=== PATIENT | female | born 1935 | race Caucasian/White ===

== ENCOUNTER 2020-04-04 08:10 | Emergency (ER) | payer MEDICARE ==
--- NOTE | 2020-04-04 08:36 | EDM.PDOC ---
ED HPI GENERAL MEDICAL PROBLEM - General Chief Complaint: Upper Extremity Injury/Pain Stated Complaint: LT ARM INJURY Time Seen by Provider: 04/04/20 08:26 Source of Information: Reports: Patient History Limitations: Reports: No Limitations - History of Present Illness INITIAL COMMENTS - FREE TEXT/NARRATIVE: The patient presents with left shoulder pain. 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 She did not hit her head or hurt her neck. She is not on any blood thinners. She has no headache, neck pain, chest pain, or abdominal pain. She does have ecchymosis to her upper arm. She has pain in her shoulder with any movement. Onset: Sudden Duration: Day(s): (Yesterday) Location: Reports: Upper Extremity, Left (Shoulder) Quality: Reports: Sharp Improves with: Reports: Immobilization Worsens with: Reports: Movement Context: Reports: Trauma (Fell yesterday) Associated Symptoms: Reports: No Other Symptoms Left Upper Arm Pain Score (Numeric/FACES): 10 - Related Data Allergies Allergy/AdvReac Type Severity Reaction Status Date / Time amoxicillin Allergy Severe Rash Verified 04/04/20 08:34 ketoprofen Allergy Severe Cannot Verified 04/04/20 08:34 Remember sitagliptin [From Januvia] Allergy Severe Cannot Verified 04/04/20 08:34 Remember Home Meds: Home Meds Insulin Glarg,Human.Rec.Analog [Lantus] 40 unit SQ DAILY 04/04/20 [History] metFORMIN [Glucophage] 1,000 mg PO DAILY 04/04/20 [History] Review of Systems - Review of Systems Review Of Systems: See Below Constitutional: Reports: No Symptoms Eyes: Reports: No Symptoms Ears: Reports: No Symptoms Nose: Reports: No Symptoms Mouth/Throat: Reports: No Symptoms Respiratory: Reports: No Symptoms Cardiovascular: Reports: No Symptoms GI/Abdominal: Reports: No Symptoms Genitourinary: Reports: No Symptoms Musculoskeletal: Reports: Other (Left shoulder pain) ED EXAM, GENERAL - Physical Exam Exam: See Below Exam Limited By: No Limitations General Appearance: Alert, No Apparent Distress Ears: Normal External Exam Nose: Normal Inspection Head: Atraumatic, Normocephalic Neck: Normal Inspection Respiratory/Chest: No Respiratory Distress, Lungs Clear, Normal Breath Sounds Cardiovascular: Regular Rate, Rhythm, No Edema, No Murmur GI/Abdominal: Soft, Non-Tender, No Organomegaly, No Mass Back Exam: Normal Inspection Extremities: Other (Ecchymosis to the proximal left humerus. Pain upon palpation and edema. Good sensation and pulses distally.) Course - Vital Signs Last Recorded V/S: Last Vital Signs Temp 97.0 F 04/04/20 08:21 Pulse 110 H 04/04/20 08:21 Resp 18 04/04/20 08:21 BP 139/83 04/04/20 08:21 Pulse Ox 97 04/04/20 08:21 - Orders/Labs/Meds Orders: Active Orders 24 hr Category Date Time Status Shoulder Comp Lt [CR] Stat Exams 04/04/20 08:31 Taken Durable Medical Equipment for Discharge [DME for Oth 04/04/20 09:22 Ordered Discharge] [COMM] Stat - Re-Assessments/Exams Free Text/Narrative Re-Assessment/Exam: 04/04/20 08:36 I ordered an x-ray of her left shoulder. 04/04/20 09:24 I do not see any fracture or dislocation. There is some degenerative changes. She cannot move her shoulder. I will get her in a shoulder immobilizer and have her follow up with physical therapy and Dr Rivera. Departure - Departure Time of Disposition: 09:25 Disposition: Home, Self-Care 01 Condition: Good Clinical Impression: Fall Qualifiers: Encounter type: initial encounter Qualified Code(s): W19.XXXA - Unspecified fall, initial encounter Contusion of left shoulder Qualifiers: Encounter type: initial encounter Qualified Code(s): S40.012A - Contusion of left shoulder, initial encounter Shoulder injury Qualifiers: Encounter type: initial encounter Laterality: left Qualified Code(s): S49.92XA - Unspecified injury of left shoulder and upper arm, initial encounter - Discharge Information *PRESCRIPTION DRUG MONITORING PROGRAM REVIEWED*: Not Applicable *COPY OF PRESCRIPTION DRUG MONITORING REPORT IN PATIENT JOSE ALBERTO: Not Applicable Referrals: Mandie Pandya MD [Primary Care Provider] - Trip Rivera MD [Physician] - 1 Week Forms: ED Department Discharge Additional Instructions: Ice your shoulder for 15 minutes 3 times per day for 2 days. Take motrin or tyelnol for pain. Wear the shoulder immobilizer for comfort. Follow up with physical therapy and Dr Rivera. Please return if you are worse. Sepsis Event Note (ED) - Evaluation Sepsis Screening Result: No Definite Risk - Focused Exam Vital Signs: Vital Signs Temp Pulse Resp BP Pulse Ox 04/04/20 08:21 97.0 F 110 H 18 139/83 97 - My Orders Last 24 Hours: My Active Orders 04/04/20 08:31 Shoulder Comp Lt [CR] Stat 04/04/20 09:22 Durable Medical Equipment for Discharge [DME for Discharge] [COMM] Stat - Assessment/Plan Last 24 Hours: My Active Orders 04/04/20 08:31 Shoulder Comp Lt [CR] Stat 04/04/20 09:22 Durable Medical Equipment for Discharge [DME for Discharge] [COMM] Stat
--- NOTE | 2020-04-04 09:30 | CR ---
Left shoulder: 3 views of the left shoulder were obtained. Comparison: No prior shoulder study. Joint space narrowing and inferior spurring is noted within the acromioclavicular joint. Glenohumeral joint appears within normal limits. Osteopenia is seen. Scattered endplate spurring is seen within the visualized spine. No acute fracture or other bony abnormality is identified. Impression: 1. Osteopenia and degenerative change. 2. No acute bony abnormality is appreciated. Diagnostic code #2 This report was dictated in MDT
== END 2020-04-04 10:04 | disposition home or self-care (01) ==
LOC: JD.ED 08:10
DX: S40.012A Contusion of left shoulder, initial encounter (principal); Z88.1 Allergy status to other antibiotic agents; Z88.8 Allergy status to other drugs, medicaments and biological substances; W19.XXXA Unspecified fall, initial encounter; W22.8XXA Striking against or struck by other objects, initial encounter
CPT/HCPCS: 73030-26-LT; 73030-LT; 99282; 99283-25

== ENCOUNTER 2022-06-28 10:21 | Emergency (ER) | payer MEDICARE ==
[2022-06-28] MEDS ORDERED: Metoclopramide 10 MG/2 ML SDV ONE (11:35)
[2022-06-28] MEDS ORDERED: Metoclopramide 10 MG/2 ML SDV IVPUSH ONE (11:40)
[2022-06-28 13:26] LABS: ESTIMATED GFR 55 mL/min (>60)
== END 2022-06-28 13:42 | disposition home or self-care (01) ==
LOC: JD.ED 10:21
DX: R42 Dizziness and giddiness (principal); G47.00 Insomnia, unspecified; E11.9 Type 2 diabetes mellitus without complications; I10 Essential (primary) hypertension; Z90.710 Acquired absence of both cervix and uterus
CPT/HCPCS: 36415; 80053; 83735; 83880; 84443; 84484; 85025; 86140; 96374; 99283; J2765

== ENCOUNTER 2022-07-23 15:06 | Emergency (ER) | payer MEDICARE | END 2022-07-23 17:32 | disposition home or self-care (01) | LOC: JD.ED 15:06 | DX: F41.9 Anxiety disorder, unspecified (principal); I10 Essential (primary) hypertension; E11.9 Type 2 diabetes mellitus without complications; Z79.82 Long term (current) use of aspirin; Z79.899 Other long term (current) drug therapy; Z79.84 Long term (current) use of oral hypoglycemic drugs; Z88.0 Allergy status to penicillin; Z88.8 Allergy status to other drugs, medicaments and biological substances; Z91.048 Other nonmedicinal substance allergy status | CPT/HCPCS: 99283 ==